=== PATIENT | male | born 1975 | race American Indian/Alaskan Native ===

== ENCOUNTER 2022-04-28 17:57 | Inpatient (IN) | payer BC ==
--- NOTE | 2022-04-28 18:36 | Emergency Department Report ---
ED Neuro Deficit HPI - General Chief Complaint: Neuro Symptoms/Deficit Stated Complaint: POSS CVA Time Seen by Provider: 04/28/22 18:32 Source: patient, EMS Mode of arrival: Stretcher Limitations: No Limitations - History of Present Illness Initial Comments: Patient is a 46-year-old male presenting to ED from clinic for evaluation of right-sided facial droop (yesterday) and slurred speech (several days ago) that he states began a few days ago after starting Plavix which he was prescribed after diagnosis of TIA roughly a week ago. He denies any other symptoms. - Related Data Allergies/Adverse Reactions: Allergies Allergy/AdvReac Type Severity Reaction Status Date / Time No Known Allergies Allergy Verified 04/28/22 18:18 ED Review of Systems ROS: Stated complaint: POSS CVA Other details as noted in HPI Constitutional: denies: chills, fever Respiratory: denies: cough, shortness of breath, wheezing Cardiovascular: denies: chest pain, palpitations Gastrointestinal: denies: abdominal pain, nausea, diarrhea Musculoskeletal: denies: back pain, joint swelling, arthralgia Skin: denies: rash, lesions Neurological: other (Right facial droop, slurred speech) ED Neuro Physical Exam - General Limitations: No Limitations General appearance: alert, in no apparent distress Suspected Stroke: Yes - Head Head exam: Present: atraumatic, normocephalic - Respiratory Respiratory exam: Present: normal lung sounds bilaterally. Absent: respiratory distress - Cardiovascular Cardiovascular Exam: Present: regular rate, normal rhythm, normal heart sounds - GI/Abdominal GI/Abdominal exam: Present: soft. Absent: distended, tenderness - Rectal Rectal exam: Present: deferred - Neurological Exam Neurological exam: Present: alert, oriented X3, other (Mild right-sided facial droop) - NIHSS Assessment Interval: 24 hours post onset of symptoms +-20 minutes 1a. Level of Consciousness: alert/keenly responsive 1b. LOC Questions: answers both correctly 1c. LOC Commands: performs tasks correctly 2. Best Gaze: normal 3. Visual: no visual loss 4. Facial Palsy: minor paralysis 5b. Motor Arm Right: no drift 5a. Motor Arm Left: no drift 6a. Motor Leg Left: no drift 6b. Motor Leg Right: no drift 7. Limb Ataxia: absent 8. Sensory: normal 9. Best Language: no aphasia 10. Dysarthria: normal 11. Extinction/Inattention: no abnormality Total Score: 1 Stroke Severity: Minor Stroke - Psychiatric Psychiatric exam: Present: normal affect, normal mood - Skin Skin exam: Present: warm, dry, intact, normal color ED Course Vital Signs 04/28/22 18:14 Pulse Rate 76 Blood Pressure 110/110 [Left] O2 Sat by Pulse 98 Oximetry - Lab Data Result diagrams: 04/28/22 19:15 04/28/22 19:15 Lab Results 04/28/22 04/28/22 04/28/22 Range/Units 19:15 19:15 19:15 WBC 8.4 (4.5-11.0) K/mm3 RBC 5.25 H (3.65-5.03) M/mm3 Hgb 14.8 (11.8-15.2) gm/dl Hct 44.4 (35.5-45.6) % MCV 85 (84-94) fl MCH 28 (28-32) pg MCHC 33 (32-34) % RDW 15.0 (13.2-15.2) % Plt Count 331 (140-440) K/mm3 Lymph % (Auto) 25.8 (13.4-35.0) % [place] % (Auto) 6.4 (0.0-7.3) % Eos % (Auto) 1.0 (0.0-4.3) % Baso % (Auto) 0.9 (0.0-1.8) % Lymph # (Auto) 2.2 (1.2-5.4) K/mm3 [place] # (Auto) 0.5 (0.0-0.8) K/mm3 Eos # (Auto) 0.1 (0.0-0.4) K/mm3 Baso # (Auto) 0.1 (0.0-0.1) K/mm3 Seg Neutrophils % 65.9 (40.0-70.0) % Seg Neutrophils # 5.5 (1.8-7.7) K/mm3 PT 13.3 (12.2-14.9) Sec. INR 0.92 (0.87-1.13) APTT 33.2 (24.2-36.6) Sec. Thrombin Time 16.7 (15.1-19.6) Sec. Sodium 139 (137-145) mmol/L Potassium 4.7 (3.6-5.0) mmol/L Chloride 102.5 (98-107) mmol/L Carbon Dioxide 26 (22-30) mmol/L Anion Gap 15 mmol/L BUN 28 H (9-20) mg/dL Creatinine 2.0 H (0.8-1.3) mg/dL Estimated GFR 36 ml/min BUN/Creatinine Ratio 14 % Glucose 192 H (75-100) mg/dL Calcium 9.4 (8.4-10.2) mg/dL Total Bilirubin 0.30 (0.1-1.2) mg/dL AST 21 (5-40) units/L ALT 22 (7-56) units/L Alkaline Phosphatase 81 (35-129) units/L Total Creatine Kinase 275 H (55-170) units/L CK-MB (CK-2) 4.1 H (0.0-4.0) ng/mL CK-MB (CK-2) Rel Index 1.4 (0-4) Troponin T < 0.010 (0.00-0.029) ng/mL Total Protein 6.9 (6.3-8.2) g/dL Albumin 4.5 (3.9-5) g/dL Albumin/Globulin Ratio 1.9 % Blood Type 04/28/22 Range/Units 19:30 WBC (4.5-11.0) K/mm3 RBC (3.65-5.03) M/mm3 Hgb (11.8-15.2) gm/dl Hct (35.5-45.6) % MCV (84-94) fl MCH (28-32) pg MCHC (32-34) % RDW (13.2-15.2) % Plt Count (140-440) K/mm3 Lymph % (Auto) (13.4-35.0) % [place] % (Auto) (0.0-7.3) % Eos % (Auto) (0.0-4.3) % Baso % (Auto) (0.0-1.8) % Lymph # (Auto) (1.2-5.4) K/mm3 [place] # (Auto) (0.0-0.8) K/mm3 Eos # (Auto) (0.0-0.4) K/mm3 Baso # (Auto) (0.0-0.1) K/mm3 Seg Neutrophils % (40.0-70.0) % Seg Neutrophils # (1.8-7.7) K/mm3 PT (12.2-14.9) Sec. INR (0.87-1.13) APTT (24.2-36.6) Sec. Thrombin Time (15.1-19.6) Sec. Sodium (137-145) mmol/L Potassium (3.6-5.0) mmol/L Chloride (98-107) mmol/L Carbon Dioxide (22-30) mmol/L Anion Gap mmol/L BUN (9-20) mg/dL Creatinine (0.8-1.3) mg/dL Estimated GFR ml/min BUN/Creatinine Ratio % Glucose (75-100) mg/dL Calcium (8.4-10.2) mg/dL Total Bilirubin (0.1-1.2) mg/dL AST (5-40) units/L ALT (7-56) units/L Alkaline Phosphatase (35-129) units/L Total Creatine Kinase (55-170) units/L CK-MB (CK-2) (0.0-4.0) ng/mL CK-MB (CK-2) Rel Index (0-4) Troponin T (0.00-0.029) ng/mL Total Protein (6.3-8.2) g/dL Albumin (3.9-5) g/dL Albumin/Globulin Ratio % Blood Type A POSITIVE - Medical Decision Making Code stroke paged. CT head performed. Radiologist called back with report of atypical CT findings concerning for possible MS. Recommended MRI with and without contrast for further evaluation. Mild MARY on chemistry. Will admit to hospitalist for further work-up including MRI. Critical care attestation.: If time is entered above; I have spent that time in minutes in the direct care of this critically ill patient, excluding procedure time. ED Disposition Clinical Impression: Symptoms of cerebrovascular accident (CVA) Disposition: ADMITTED INPATIENT Is pt being admited?: Yes Condition: Stable
--- NOTE | 2022-04-28 18:39 | Consultation ---
History of Present Illness Consult date: 04/28/22 History of present illness: Reader Teleneurology Consult Note # Demographics Consult Type: Acute Stroke Level 2 (4.5-24 hrs) Patient Location: Emergency Room First Name: Shantanu Last Name: Date of : 1975 Age: 46 Gender: Male Facility: [facility] Time of Initial Page (Eastern Time): 04/28/2022, 18:26 Time of Return Call (Eastern Time): 04/28/2022, 18:27 # HPI Chief Complaint: weakness (focal) History: Per ER staff, patient with TIA two weeks ago. Left facial droop started yesterday. Last Known Normal: I have collected independent history specific to time last normal or last known well. We have collaborated with the provider and at this time, we have the most current timeline with the information that is available. 04/27/22 Duration: constant days # Scores Time of exam and NIHSS ( Time): 04/28/2022, 18:32 Level of Consciousness 1a: [0] = Alert; keenly responsive LOC Questions 1b: [0] = Answers both questions correctly LOC Commands 1c: [0] = Performs both tasks correctly Best Gaze 2: [0] = Normal Visual 3: [0] = No visual loss Facial Palsy 4: [1] = Minor paralysis Motor Arm Left 5a: [0] = No drift Motor Arm Right 5b: [0] = No drift Motor Leg Left 6a: [0] = No drift Motor Leg Right 6b: [0] = No drift Limb Ataxia 7: [0] = Absent Sensory 8: [0] = Normal Best Language 9: [0] = No aphasia Dysarthria 10: [0] = Normal Extinction and Inattention 11: [0] = No abnormality NIHSS Total: 1 Modified Mario Scale (mRS) pre-stroke: [0] = No Symptoms Modified Mario Scale total: 0 VAN Screening: Negative # Exam SBP: 180 DBP: 110 Mental Status: awake alert and oriented x 3 follows commands Cranial Nerves: left facial droop Subtle nasolabial fold flattening # ROS Pulmonary: no shortness of breath Cardiovascular: no chest pain # PMH-FH-SH Past Medical History: Diabetes hyperlipidemia hypertension Social History: non-smoker Medications: antihypertensive plavix Allergies: NKDA # Data Glucose: 219 # Assessment Impression: Ischemic Stroke (Acute) # Plan Thrombolytic/Intervention: NOT IV Thrombolysis or IA Intervention candidate Thrombolytic Exclusion (< 3 hour window): time of onset unclear Thrombolytic Exclusion: > 4.5 hours Target Blood Pressure: SBP < [address] Labs: CBC comprehensive metabolic panel ESR hemoglobin A1c lipid panel troponin TSH urine drug screen ua Imaging: (urgency: STAT): CT Head without contrast CT Angiogram Head and CT Angiogram Neck AND call back with results if abnormal Imaging: (urgency: routine): MRI Brain without contrast Diagnostic Test: echo without bubble study Therapy/Evaluation: NPO until swallow evaluation PT/OT evaluation Medication: aspirin 81 mg PLUS clopidogrel (Plavix) 75 mg for 21 days, then monotherapy therafter start statin with goal of LDL < 70 Antiplatelet therapy pending head CT DVT Prophylaxis: SCD chemical DVT prophylaxis Other: LDL < 70 If patient has any neurological deterioration please call me back immediately permissive hypertension telemetry monitoring I have discussed my recommendations with the referring provider Disposition: admit # Demographics First Name: Shantanu Last Name: Facility: [facility] Medications and Allergies Allergies Allergy/AdvReac Type Severity Reaction Status Date / Time No Known Allergies Allergy Verified 04/28/22 18:18 Physical Examination - Vital Signs Vital Signs: Vital Signs Pulse BP Pulse Ox 76 110/110 98 04/28/22 18:14 04/28/22 18:14 04/28/22 18:14
[2022-04-28 19:24] LABS: Basophils # (Auto) 0.1 K/mm3 (0.0-0.1); Basophils % (Auto) 0.9 % (0.0-1.8); Eosinophils # (Auto) 0.1 K/mm3 (0.0-0.4); Hematocrit 44.4 % (35.5-45.6); Hemoglobin 14.8 gm/dl (11.8-15.2); Lymphocytes # (Auto) 2.2 K/mm3 (1.2-5.4); Lymphocytes % (Auto) 25.8 % (13.4-35.0); Mean Corpuscular HGB Conc 33 % (32-34); Mean Corpuscular Volume 85 fl (84-94); Monocytes # (Auto) 0.5 K/mm3 (0.0-0.8); Monocytes % (Auto) 6.4 % (0.0-7.3); Platelet Count 331 K/mm3 (140-440); Red Blood Count 5.25 M/mm3 (3.65-5.03)
--- NOTE | 2022-04-28 19:30 | Cat Scan Report ---
CT head/brain wo con INDICATION: Stroke symptoms. TECHNIQUE: Routine CT head. All CT scans at this location are performed using CT dose reduction for A INEZ by means of automated exposure control. COMPARISON: None. FINDINGS: Intracranial: Hypoattenuation involving the right periventricular white matter. The lesions appear li ke they are perpendicular to the long axis of the lateral ventricles and involve the callososeptal in terface for example on image 32 of series 602. There is also prominent lesion seen on image 18 of ser ies 2 which involves the genu of the corpus callosum. Silveira-white matter differentiation is maintained . No intracranial hemorrhage. No extra axial collection. No hydrocephalus. No herniation. Sinuses: Paranasal sinuses and mastoid air cells are essentially clear. Orbits: Globes are intact. Calvarium: No acute fracture. IMPRESSION: 1. There are \white matter \abnormalities which involve the corpus callosum. This is atypical for in farction and multiple sclerosis is a consideration. Recommend MRI brain with and without contrast to further characterize. Signer Name: Javy Bowling MD Signed: 04/28/2022 7:26 PM Workstation Name: [id number]
[2022-04-28 19:36] LABS: INR 0.92 (0.87-1.13)
[2022-04-28 19:37] LABS: Partial Thromboplastin Time 33.2 Sec. (24.2-36.6); Thrombin Time 16.7 Sec. (15.1-19.6)
[2022-04-28 19:46] LABS: Creatine Kinase MB 4.1 ng/mL (0.0-4.0)
[2022-04-28 19:47] LABS: Alanine Aminotransferase 22 units/L (7-56); Albumin 4.5 g/dL (3.9-5); BUN/Creatinine Ratio 14; Blood Urea Nitrogen 28 mg/dL (9-20); Calcium 9.4 mg/dL (8.4-10.2); Hemolysis Index 47
[2022-04-28] MEDS ORDERED: MORPHINE 4 MG/1 ML INJ IV PRN (20:25)
[2022-04-28] MEDS ORDERED: ONDANSETRON 4 MG/2 ML INJ IV PRN ×2 (20:25→21:50)
[2022-04-28] MEDS ORDERED: MORPHINE 2 MG/1 ML INJ IV PRN (20:25)
[2022-04-28] MEDS ORDERED: ACETAMINOPHEN 325 MG TAB PO PRN ×2 (20:25→21:50)
[2022-04-28] MEDS ORDERED: METOCLOPRAMIDE 10 MG/2 ML INJ IV PRN (21:50)
[2022-04-28] MEDS ORDERED: SODIUM CHLORIDE 0.9% 1000 ML 1,000 ML IV SCH (22:00)
--- NOTE | 2022-04-28 23:08 | Cat Scan Report ---
CT angio head, CT angio neck INDICATION / CLINICAL INFORMATION: SHORTNESS OF BREATH 100ml of [id number] . TECHNIQUE: CT angiography of the head and neck was performed following administration of 100 cc Omnip aque 350 intravenous contrast. In addition to axial source images, coronal and sagittal thin slab MIP reconstructions were provided. Additional 3-D volumetric reconstructions of vasculature were provide d. All CT scans at this location are performed using CT dose reduction for ALARA by means of automate d exposure control. Calculation of stenosis will be made using direct NASCET criteria. COMPARISON: CT head same date. FINDINGS: VASCULAR FINDINGS: NECK: The majority of the contrast bolus lies within the cardiac circulation suboptimal opacification of arterial structures is noted throughout the head and neck. AORTA: The great vessel origins are not well-visualized secondary to significant streak artifact fro m contrast material within the adjacent left brachiocephalic vein. GREAT VESSELS: Not well-visualized. VERTEBRAL ARTERIES: Vertebral artery origins cannot be identified secondary to streak artifact. Addit ionally, significantly suboptimal opacification of the vasculature is demonstrated. Above the approxi mate C4, the bilateral V2 segments demonstrate no obvious abnormality. Below this level not well-visu alized. RIGHT CAROTID: The proximal to mid right common carotid artery not well-visualized. Bifurcation is wi merrick patent. The right ECA and ICA appear widely patent. LEFT CAROTID: The left proximal to mid common carotid artery is not well-visualized. The bifurcation appears widely patent. The left ECA and left cervical segment ICA appear widely patent. VENOUS STRUCTURES: Nonopacified. INTRACRANIAL CIRCULATION: Intracranial vasculature within the skull base is not well opacified. RIGHT ICA: The right petrous segment ICA appears fairly uniform. The distal cavernous segment demonst rates moderate intimal calcification and severe short segment stenosis near the ophthalmic artery natalya gins suggested. RIGHT SAVANAH: The right anterior cerebral artery demonstrates no evidence of aneurysm, severe stenosis, or occlusion. RIGHT MCA: The right MCA demonstrates no evidence of large vessel occlusion, aneurysm formation, or s evere stenosis. LEFT ICA: The left petrous ICA is not well-visualized. Moderate artifact is present. The left caverno us segment ICA demonstrates heavy intimal calcification and focal short segment severe stenosis is kelly ggested proximal to the ophthalmic artery origin. LEFT SAVANAH: The left SAVANAH demonstrates no evidence of aneurysm formation, occlusion, or severe stenosis. LEFT MCA: The left MCA demonstrates no evidence of large vessel occlusion, aneurysm formation, or sev ere stenosis. ANTERIOR COMMUNICATING ARTERY: No significant abnormality. POSTERIOR COMMUNICATING ARTERIES: Not identified. VERTEBRAL CONFLUENCE: The vertebral confluence demonstrates no significant abnormality. Left vertebra l artery is dominant. BASILAR ARTERY: Basilar artery demonstrates no significant abnormality. Bifurcation and bilateral P1 segments demonstrate patency without evidence of aneurysm formation, significant stenosis, or occlusi on. RIGHT MARKETING ANALYTICS ANALYST: The right MARKETING ANALYTICS ANALYST demonstrates no evidence of occlusion, aneurysm formation, or severe stenosi s. LEFT MARKETING ANALYTICS ANALYST: The left MARKETING ANALYTICS ANALYST demonstrates no evidence of occlusion, aneurysm formation, or severe stenosis. DURAL SINUSES AND CORTICAL DURAL VEINS: Not well opacified. NONVASCULAR FINDINGS: The intracranial contents, intraorbital contents, paranasal sinuses, mastoid air cells, soft tissues and musculature of the face, soft tissues and musculature of the neck, thyroid, and upper chest demon strate no significant abnormalities. IMPRESSION: 1. Significant limitation in evaluation of the intracranial vessels and proximal carotid/vertebral ar teries for reasons as detailed. Bilateral cavernous segment ICAs demonstrate moderate to severe steno sis as detailed above. Otherwise no large vessel occlusion, aneurysm, or severe stenosis is clearly d emonstrated. 2. The dural sinuses and cortical dural veins are not well-opacified and cannot be evaluated. 3. Nonvascular structures demonstrate no significant abnormality. Signer Name: Donaldo Landin II, MD Signed: 04/28/2022 11:03 PM Workstation Name: [id number]
--- NOTE | 2022-04-28 23:08 | Cat Scan Report ---
CT angio head, CT angio neck INDICATION / CLINICAL INFORMATION: SHORTNESS OF BREATH 100ml of [id number] . TECHNIQUE: CT angiography of the head and neck was performed following administration of 100 cc Omnip aque 350 intravenous contrast. In addition to axial source images, coronal and sagittal thin slab MIP reconstructions were provided. Additional 3-D volumetric reconstructions of vasculature were provide d. All CT scans at this location are performed using CT dose reduction for ALARA by means of automate d exposure control. Calculation of stenosis will be made using direct NASCET criteria. COMPARISON: CT head same date. FINDINGS: VASCULAR FINDINGS: NECK: The majority of the contrast bolus lies within the cardiac circulation suboptimal opacification of arterial structures is noted throughout the head and neck. AORTA: The great vessel origins are not well-visualized secondary to significant streak artifact fro m contrast material within the adjacent left brachiocephalic vein. GREAT VESSELS: Not well-visualized. VERTEBRAL ARTERIES: Vertebral artery origins cannot be identified secondary to streak artifact. Addit ionally, significantly suboptimal opacification of the vasculature is demonstrated. Above the approxi mate C4, the bilateral V2 segments demonstrate no obvious abnormality. Below this level not well-visu alized. RIGHT CAROTID: The proximal to mid right common carotid artery not well-visualized. Bifurcation is wi merrick patent. The right ECA and ICA appear widely patent. LEFT CAROTID: The left proximal to mid common carotid artery is not well-visualized. The bifurcation appears widely patent. The left ECA and left cervical segment ICA appear widely patent. VENOUS STRUCTURES: Nonopacified. INTRACRANIAL CIRCULATION: Intracranial vasculature within the skull base is not well opacified. RIGHT ICA: The right petrous segment ICA appears fairly uniform. The distal cavernous segment demonst rates moderate intimal calcification and severe short segment stenosis near the ophthalmic artery natalya gins suggested. RIGHT SAVANAH: The right anterior cerebral artery demonstrates no evidence of aneurysm, severe stenosis, or occlusion. RIGHT MCA: The right MCA demonstrates no evidence of large vessel occlusion, aneurysm formation, or s evere stenosis. LEFT ICA: The left petrous ICA is not well-visualized. Moderate artifact is present. The left caverno us segment ICA demonstrates heavy intimal calcification and focal short segment severe stenosis is kelly ggested proximal to the ophthalmic artery origin. LEFT SAVANAH: The left SAVANAH demonstrates no evidence of aneurysm formation, occlusion, or severe stenosis. LEFT MCA: The left MCA demonstrates no evidence of large vessel occlusion, aneurysm formation, or sev ere stenosis. ANTERIOR COMMUNICATING ARTERY: No significant abnormality. POSTERIOR COMMUNICATING ARTERIES: Not identified. VERTEBRAL CONFLUENCE: The vertebral confluence demonstrates no significant abnormality. Left vertebra l artery is dominant. BASILAR ARTERY: Basilar artery demonstrates no significant abnormality. Bifurcation and bilateral P1 segments demonstrate patency without evidence of aneurysm formation, significant stenosis, or occlusi on. RIGHT BARK FITTER: The right BARK FITTER demonstrates no evidence of occlusion, aneurysm formation, or severe stenosi s. LEFT BARK FITTER: The left BARK FITTER demonstrates no evidence of occlusion, aneurysm formation, or severe stenosis. DURAL SINUSES AND CORTICAL DURAL VEINS: Not well opacified. NONVASCULAR FINDINGS: The intracranial contents, intraorbital contents, paranasal sinuses, mastoid air cells, soft tissues and musculature of the face, soft tissues and musculature of the neck, thyroid, and upper chest demon strate no significant abnormalities. IMPRESSION: 1. Significant limitation in evaluation of the intracranial vessels and proximal carotid/vertebral ar teries for reasons as detailed. Bilateral cavernous segment ICAs demonstrate moderate to severe steno sis as detailed above. Otherwise no large vessel occlusion, aneurysm, or severe stenosis is clearly d emonstrated. 2. The dural sinuses and cortical dural veins are not well-opacified and cannot be evaluated. 3. Nonvascular structures demonstrate no significant abnormality. Signer Name: Donaldo Landin II, MD Signed: 04/28/2022 11:03 PM Workstation Name: [id number]
[2022-04-29] MEDS: FAMOTIDINE 20 MG TAB PO SCH ×2 (00:19→11:22)
[2022-04-29 06:07] LABS: Basophils % (Auto) 0.7 % (0.0-1.8); Eosinophils # (Auto) 0.1 K/mm3 (0.0-0.4); Eosinophils % (Auto) 1.8 % (0.0-4.3); Hematocrit 42.1 % (35.5-45.6); Hemoglobin 13.7 gm/dl (11.8-15.2); Lymphocytes # (Auto) 2.5 K/mm3 (1.2-5.4); Lymphocytes % (Auto) 39.2 % (13.4-35.0); Mean Corpuscular HGB Conc 33 % (32-34); Mean Corpuscular Volume 85 fl (84-94); Monocytes # (Auto) 0.4 K/mm3 (0.0-0.8); Monocytes % (Auto) 7.1 % (0.0-7.3); Platelet Count 298 K/mm3 (140-440); Red Blood Count 4.95 M/mm3 (3.65-5.03); Red Cell Distribution Width 14.5 % (13.2-15.2)
[2022-04-29 06:26] LABS: Calcium 8.9 mg/dL (8.4-10.2); Chol/HDL Ratio 2.11 %
--- NOTE | 2022-04-29 06:36 | History and Physical Report ---
History of Present Illness Date of examination: 04/28/22 Date of admission: 04/28/22 20:25 Chief complaint: Right-sided weakness for 1 day History of present illness: 46-year-old male with morbid obesity and no significant past medical history comes in for right-sided facial droop and slurred speech and slight right-sided weakness for 1 day. Patient has similar symptoms couple weeks ago and was treated as a TIA. Patient has stated paperwork for TIA work-up. During my examination patient has definitely had right facial paralysis. But no significant weakness on the right upper and right lower EXTR. Past History Past Medical History: No medical history, other (Severe obesity) Past Surgical History: No surgical history Social history: lives with family, full code Family history: hypertension Medications and Allergies Allergies Allergy/AdvReac Type Severity Reaction Status Date / Time No Known Allergies Allergy Verified 04/28/22 18:18 Active Meds: Active Medications Acetaminophen (Acetaminophen 325 Mg Tab) 650 mg PO Q4H PRN PRN Reason: Pain MILD(1-3)/Fever >100.5/ANTONY Aspirin (Aspirin 325 Mg Tab) 325 mg PO QDAY [facility] Atorvastatin Calcium (Atorvastatin 40 Mg Tab) 40 mg PO QHS [facility] Last Admin: 04/29/22 00:19 Dose: 40 mg Enoxaparin Sodium (Enoxaparin 40 Mg/0.4 Ml Inj) 40 mg SUB-Q QDAY [facility] Famotidine (Famotidine 20 Mg Tab) 20 mg PO QAM [facility] Last Admin: 04/29/22 00:19 Dose: 20 mg Sodium Chloride (Nacl 0.9% 1000 Ml) 1,000 mls @ 42 mls/hr IV DIRECT [facility] Metoclopramide HCl (Metoclopramide 10 Mg/2 Ml Inj) 5 mg IV Q6H PRN PRN Reason: Nausea And Vomiting Morphine Sulfate (Morphine 2 Mg/1 Ml Inj) 2 mg IV Q4H PRN PRN Reason: Pain, Moderate (4-6) Morphine Sulfate (Morphine 4 Mg/1 Ml Inj) 4 mg IV Q4H PRN PRN Reason: Pain , Severe (7-10) Ondansetron HCl (Ondansetron 4 Mg/2 Ml Inj) 4 mg IV Q8H PRN PRN Reason: Nausea And Vomiting Sodium Chloride (Sodium Chloride 0.9% 10 Ml Flush Syringe) 10 ml IV BID [facility] Last Admin: 04/29/22 00:19 Dose: 10 ml Sodium Chloride (Sodium Chloride 0.9% 10 Ml Flush Syringe) 10 ml IV PRN PRN PRN Reason: LINE FLUSH Review of Systems All systems: negative Neurological: transient paralysis (Right upper and right lower extremity along with right facial paralysis.), weakness Exam - Constitutional Vitals: Temp Pulse Resp BP Pulse Ox 98.5 F 76 18 140/77 98 04/29/22 03:46 04/29/22 04:55 04/29/22 03:46 04/29/22 03:46 04/29/22 03:46 General appearance: Present: no acute distress, well-nourished - EENT Eyes: Present: PERRL ENT: hearing intact, clear oral mucosa - Neck Neck: Present: supple, normal ROM - Respiratory Respiratory effort: normal Respiratory: bilateral: CTA - Cardiovascular Heart rate: 78 Rhythm: regular Heart Sounds: Present: S1 & S2. Absent: rub, click - Extremities Extremities: no ischemia, pulses intact, pulses symmetrical, No edema Peripheral Pulses: within normal limits - Abdominal General gastrointestinal: Present: soft, non-tender, non-distended, normal bowel sounds Male genitourinary: Present: normal - Integumentary Integumentary: Present: clear, warm, dry - Musculoskeletal Musculoskeletal: gait normal, strength equal bilaterally - Psychiatric Psychiatric: appropriate mood/affect, intact judgment & insight - Neurologic Neurologic: CNII-XII intact, focal deficits (Right facial palsy), moves all extremities (Strength is normal in all 4 extremities) HEART Score - HEART Score History: Slightly suspicious Age: < 45 Risk factors: 1-2 risk factors Troponin: Troponin T < 0.010 ng/mL (0.00-0.029) 04/28/22 19:15 Troponin: < normal limit - Critical Actions Critical Actions: 0-3 pts:0.9-1.7%risk of adverse cardiac event.Candidate for discharge Results - Labs CBC & Chem 7: 04/29/22 05:28 04/29/22 05:28 Labs: Laboratory Last Values WBC 6.3 K/mm3 (4.5-11.0) 04/29/22 05:28 RBC 4.95 M/mm3 (3.65-5.03) 04/29/22 05:28 Hgb 13.7 gm/dl (11.8-15.2) 04/29/22 05:28 Hct 42.1 % (35.5-45.6) 04/29/22 05:28 MCV 85 fl (84-94) 04/29/22 05:28 MCH 28 pg (28-32) 04/29/22 05: MCHC 33 % (32-34) 04/29/22 05:28 RDW 14.5 % (13.2-15.2) 04/29/22 05:28 Plt Count 298 K/mm3 (140-440) 04/29/22 05:28 Lymph % (Auto) 39.2 % (13.4-35.0) H 04/29/22 05:28 Stanley % (Auto) 7.1 % (0.0-7.3) 04/29/22 05:28 Eos % (Auto) 1.8 % (0.0-4.3) 04/29/22 05:28 Baso % (Auto) 0.7 % (0.0-1.8) 04/29/22 05:28 Lymph # (Auto) 2.5 K/mm3 (1.2-5.4) 04/29/22 05:28 Stanley # (Auto) 0.4 K/mm3 (0.0-0.8) 04/29/22 05:28 Eos # (Auto) 0.1 K/mm3 (0.0-0.4) 04/29/22 05:28 Baso # (Auto) 0.0 K/mm3 (0.0-0.1) 04/29/22 05:28 Seg Neutrophils % 51.2 % (40.0-70.0) 04/29/22 05:28 Seg Neutrophils # 3.2 K/mm3 (1.8-7.7) 04/29/22 05:28 PT 13.3 Sec. (12.2-14.9) 04/28/22 19:15 INR 0.92 (0.87-1.13) 04/28/22 19:15 APTT 33.2 Sec. (24.2-36.6) 04/28/22 19:15 Thrombin Time 16.7 Sec. (15.1-19.6) 04/28/22 19:15 Sodium 139 mmol/L (137-145) 04/29/22 05:28 Potassium 4.3 mmol/L (3.6-5.0) 04/29/22 05:28 Chloride 106.3 mmol/L (98-107) 04/29/22 05:28 Carbon Dioxide 22 mmol/L (22-30) 04/29/22 05:28 Anion Gap 15 mmol/L 04/29/22 05:28 BUN 25 mg/dL (9-20) H 04/29/22 05:28 Creatinine 1.7 mg/dL (0.8-1.3) H 04/29/22 05:28 Estimated GFR 53 ml/min 04/29/22 05:28 BUN/Creatinine Ratio 15 % 04/29/22 05:28 Glucose 119 mg/dL (75-100) H 04/29/22 05:28 POC Glucose 219 mg/dL (70-105) H 04/28/22 18:33 Calcium 8.9 mg/dL (8.4-10.2) 04/29/22 05:28 Total Bilirubin 0.40 mg/dL (0.1-1.2) 04/29/22 05:28 AST 16 units/L (5-40) 04/29/22 05:28 ALT 20 units/L (7-56) 04/29/22 05:28 Alkaline Phosphatase 73 units/L (35-129) 04/29/22 05:28 Total Creatine Kinase 275 units/L (55-170) H 04/28/22 19:15 CK-MB (CK-2) 4.1 ng/mL (0.0-4.0) H 04/28/22 19:15 CK-MB (CK-2) Rel Index 1.4 (0-4) 04/28/22 19:15 Troponin T < 0.010 ng/mL (0.00-0.029) 04/28/22 19:15 Total Protein 6.3 g/dL (6.3-8.2) 04/29/22 05:28 Albumin 4.0 g/dL (3.9-5) 04/29/22 05:28 Albumin/Globulin Ratio 1.7 % 04/29/22 05:28 Triglycerides 51 mg/dL (2-149) 04/29/22 05:28 Cholesterol 129 mg/dL (50-199) 04/29/22 05:28 LDL Cholesterol Direct 58 mg/dL (50-130) 04/29/22 05:28 HDL Cholesterol 61 mg/dL (40-59) H 04/29/22 05:28 Cholesterol/HDL Ratio 2.11 % 04/29/22 05:28 Blood Type A POSITIVE 04/28/22 19:30 Antibody Screen Negative 04/28/22 19:30 Short CBC 04/28/22 04/29/22 Range/Units 19:15 05:28 WBC 8.4 6.3 (4.5-11.0) K/mm3 Hgb 14.8 13.7 (11.8-15.2) gm/dl Hct 44.4 42.1 (35.5-45.6) % Plt Count 331 298 (140-440) K/mm3 BMP 04/28/22 04/29/22 19:15 05:28 Sodium 139 139 Potassium 4.7 4.3 Chloride 102.5 106.3 Carbon Dioxide 26 22 BUN 28 H 25 H Creatinine 2.0 H 1.7 H Glucose 192 H 119 H Calcium 9.4 8.9 Cardiac Enzymes 04/28/22 Range/Units 19:15 Total Creatine Kinase 275 H (55-170) units/L CK-MB (CK-2) 4.1 H (0.0-4.0) ng/mL Troponin T < 0.010 (0.00-0.029) ng/mL Liver Function 04/28/22 04/29/22 Range/Units 19:15 05:28 Total Bilirubin 0.30 0.40 (0.1-1.2) mg/dL AST 21 16 (5-40) units/L ALT 22 20 (7-56) units/L Alkaline Phosphatase 81 73 (35-129) units/L Albumin 4.5 4.0 (3.9-5) g/dL - Imaging and Cardiology Imaging and Cardiology: Head CT There are white matter abnormalities which involve the corpus callosum which is atypical for infarction and multiple sclerosis Consult with recommended MRI brain with and without contrast to further characterize. Head and neck CTA Neck pain significant limitation for evaluation of intracranial results and proximal carotid/vertebral arteries for reasons as detailed. No acute abnormalities. Camara/IV: Voiding Method Toilet Assessment and Plan Advance Directives: Yes (Full code) VTE prophylaxis?: Chemical Plan of care discussed with patient/family: Yes - Patient Problems (1) TIA (transient ischemic attack) Current Visit: Yes Status: Acute Plan to address problem: TIA work-up again Will get MRI because of the frequent admissions to ER Neurology consult requested Echocardiogram requested. (2) Facial paralysis on right side Current Visit: Yes Status: Acute Plan to address problem: More consistent with Thomas's palsy. Not in agreement with acute CVA Possible TIA His strength is very normal movement in all 4 EXTR (3) Morbid obesity with BMI of 40.0-44.9, adult Current Visit: Yes Status: Chronic Plan to address problem: Patient counseled about his weight and to follow-up with bariatric surgery Dr. Gonsalves for possible intervention like gastric bypass or banding (4) MARY (acute kidney injury) Current Visit: Yes Status: Acute Plan to address problem: IV fluids for now Vasomotor nephropathy (5) T2DM (type 2 diabetes mellitus) Current Visit: Yes Status: Chronic Qualifiers: Diabetes mellitus chcf insulin use: without computer terminal operator use Plan to address problem: Newly diagnosed Patient initiated on metformin and SGLT elevated Diabetes education (6) DVT prophylaxis Current Visit: Yes Status: Acute Plan to address problem: On heparin and GI prophylax (7) Advance care planning Current Visit: Yes Status: Acute Plan to address problem: Disease education conducted, care plan discussed, diagnosis discussed and prognosis discussed. Patient acknowledged understanding. Care plan +30 minutes. Patient is full code.
[2022-04-29] MEDS ORDERED: SODIUM CHLORIDE 0.9% 1000 ML 1,000 ML IV SCH (06:45)
--- NOTE | 2022-04-29 09:43 | Magnetic Resonance Report ---
MRI BRAIN WITHOUT AND WITH CONTRAST INDICATION / CLINICAL INFORMATION: Evaluate for CVA vs multiple sclerosis, SLURRED SPEECH. TECHNIQUE: Multiplanar, multisequence MR images of the brain were obtained. COMPARISON: None available. FINDINGS: BRAIN / INTRACRANIAL CONTENTS: There is a small focus of restricted diffusion in the right frontal pe riventricular white matter. There are also some adjacent foci of T2/FLAIR hyperintensity in the periv entricular white matter bilaterally. Additionally, small foci of T2 signal hyperintensity are seen in the deep cerebral white matter. There is no abnormal enhancement. There is no hemorrhage or adverse mass effect. CRANIOCERVICAL JUNCTION: No significant abnormality. VASCULAR FLOW-VOIDS: No significant abnormality. ORBITS: No significant abnormality of visualized orbits. SINUSES / MASTOIDS: No significant abnormality of visualized sinuses and mastoid air cells. ADDITIONAL FINDINGS: None. IMPRESSION: 1. Small focus of restricted diffusion in the right frontal periventricular white matter with associa jacquelyn scattered periventricular T2 hyperintensities. Findings do raise the possibility of demyelinating process such as multiple sclerosis for which clinical evaluation is recommended. Signer Name: Johnny Cerrato MD Signed: 04/29/2022 9:38 AM Workstation Name: [email or web address]
--- NOTE | 2022-04-29 09:56 | Electrocardiograph Report ---
[facility] Test Date: 2022-04-28 Test Time: 19:43:19 Pat Name: NASREEN CLEMENTS Department: Room: A459 1 Gender: M Logistics/Shipper: MANJEET : 1975 Requested By: BOY HERNANDES Order Number: [id number] Reading MD: David Tim Measurements Intervals Branch Rate: 79 P: 54 ID: [id number] QRS: 49 QRSD: 90 T: 252 QT: 370 QTc: 426 Interpretive Statements Sinus rhythm Nonspecific T abnormalities, inferior leads No previous ECG available for comparison Electronically Signed On 04-29-2022 9:56:42 EDT by David Tim
[2022-04-29] MEDS: ASPIRIN 325 MG TAB PO SCH (11:22)
--- NOTE | 2022-04-29 12:06 | Progress Note ---
Assessment and Plan Assessment and plan: #TIAruled out #Possible new diagnosis of multiple sclerosis CT head noncontrast revealing "small focus of restricted diffusion in the right frontal periventricular white matter with associated scattered periventricular T2 hyperintensities. Findings do raise the possibility of demyelinating process such as multiple sclerosis for which clinical evaluation is recommended." MRI brain with and without contrast revealing "small focus of restricted diffusion in the right frontal periventricular white matter with associated scattered periventricular T2 hyperintensities. Findings do raise the possibility of demyelinating process such as multiple sclerosis for which clinical evaluation is recommended." Pending TTE read. Patient had TTE performed at outside facility last month; however, we are unable to access the read. Hemoglobin A1c 8.7. Lipid panel: Triglycerides 51, cholesterol 129, LDL 58, HDL 61 Neurology consulted; pending recs Physical therapy consulted; pending recs #AKIimproving Likely secondary to vasomotor nephropathy Creatinine 2.0--> 1.7 (baseline unknown) Continue IV fluid resuscitation. Renally dose drugs and avoid nephrotoxic meds. #Newly diagnosed non-insulin dependent type II diabetes mellitus hyperglycemia - hemoglobin A1c: Pending - home regimen: Sitagliptin 100 mg daily - current regimen: NPH 10 units twice daily (in the setting of high-dose steroids) + metformin 1000 mg twice daily + moderate SSI - blood glucose goal 140-180 while inpatient - continue to monitor #Morbid obesity #Weight loss counseling #Exercise counseling - BMI 43.4 - Counseled patient on the importance of weight loss, incorporating exercise, and dietary changes (lean meats, fresh fruits and vegetables, and water intake). Patient expresses understanding. - Time: +15 min #Advanced care planning -Disease education conducted, care plan discussed, diagnoses discussed, prognosis discussed, and patient acknowledges understanding with care plan -Time: +30 min Disposition Plan: Continue medical management Total Time Spent with Patient (Minutes): 45 minutes History Interval history: No acute events overnight. Hospitalist Physical - Constitutional Vitals: Temp Pulse Resp BP Pulse Ox 96.5 F L 75 18 158/98 96 04/29/22 11:38 04/29/22 11:38 04/29/22 11:38 04/29/22 11:38 04/29/22 11:38 General appearance: Present: no acute distress, well-nourished, obese - EENT Eyes: Present: PERRL, EOM intact ENT: hearing intact, clear oral mucosa, dentition normal - Neck Neck: Present: supple, normal ROM - Respiratory Respiratory effort: normal Respiratory: bilateral: CTA - Cardiovascular Rhythm: regular Heart Sounds: Present: S1 & S2 - Extremities Extremities: no ischemia, pulses intact, pulses symmetrical, No edema, normal temperature, normal color Peripheral Pulses: within normal limits - Abdominal General gastrointestinal: soft, non-tender, non-distended, normal bowel sounds - Integumentary Integumentary: Present: clear, warm, dry - Psychiatric Psychiatric: appropriate mood/affect, intact judgment & insight, memory intact, cooperative - Neurologic Neurologic: CNII-XII intact, moves all extremities, other (L facial drooping) - Allied Health Allied health notes reviewed: nursing HEART Score - HEART Score Age: < 45 Risk factors: 1-2 risk factors Troponin: Troponin T < 0.010 ng/mL (0.00-0.029) 04/28/22 19:15 Troponin: < normal limit - Critical Actions Critical Actions: 0-3 pts:0.9-1.7%risk of adverse cardiac event.Candidate for discharge Results - Labs CBC & Chem 7: 04/29/22 05:28 04/29/22 05:28 Labs: Laboratory Last Values WBC 6.3 K/mm3 (4.5-11.0) 04/29/22 05:28 RBC 4.95 M/mm3 (3.65-5.03) 04/29/22 05:28 Hgb 13.7 gm/dl (11.8-15.2) 04/29/22 05:28 Hct 42.1 % (35.5-45.6) 04/29/22 05:28 MCV 85 fl (84-94) 04/29/22 05:28 MCH 28 pg (28-32) 04/29/22 05:28 MCHC 33 % (32-34) 04/29/22 05:28 RDW 14.5 % (13.2-15.2) 04/29/22 05:28 Plt Count 298 K/mm3 (140-440) 04/29/22 05:28 Lymph % (Auto) 39.2 % (13.4-35.0) H 04/29/22 05:28 Todd % (Auto) 7.1 % (0.0-7.3) 04/29/22 05:28 Eos % (Auto) 1.8 % (0.0-4.3) 04/29/22 05:28 Baso % (Auto) 0.7 % (0.0-1.8) 04/29/22 05:28 Lymph # (Auto) 2.5 K/mm3 (1.2-5.4) 04/29/22 05:28 Todd # (Auto) 0.4 K/mm3 (0.0-0.8) 04/29/22 05:28 Eos # (Auto) 0.1 K/mm3 (0.0-0.4) 04/29/22 05:28 Baso # (Auto) 0.0 K/mm3 (0.0-0.1) 04/29/22 05:28 Seg Neutrophils % 51.2 % (40.0-70.0) 04/29/22 05:28 Seg Neutrophils # 3.2 K/mm3 (1.8-7.7) 04/29/22 05:28 PT 13.3 Sec. (12.2-14.9) 04/28/22 19:15 INR 0.92 (0.87-1.13) 04/28/22 19:15 APTT 33.2 Sec. (24.2-36.6) 04/28/22 19:15 Thrombin Time 16.7 Sec. (15.1-19.6) 04/28/22 19:15 Sodium 139 mmol/L (137-145) 04/29/22 05:28 Potassium 4.3 mmol/L (3.6-5.0) 04/29/22 05:28 Chloride 106.3 mmol/L (98-107) 04/29/22 05:28 Carbon Dioxide 22 mmol/L (22-30) 04/29/22 05:28 Anion Gap 15 mmol/L 04/29/22 05:28 BUN 25 mg/dL (9-20) H 04/29/22 05:28 Creatinine 1.7 mg/dL (0.8-1.3) H 04/29/22 05:28 Estimated GFR 53 ml/min 04/29/22 05:28 BUN/Creatinine Ratio 15 % 04/29/22 05:28 Glucose 119 mg/dL (75-100) H 04/29/22 05:28 POC Glucose 255 mg/dL (70-105) H 04/29/22 11:45 Hemoglobin A1c 8.7 % (4-6) H 04/29/22 07:46 Calcium 8.9 mg/dL (8.4-10.2) 04/29/22 05:28 Total Bilirubin 0.40 mg/dL (0.1-1.2) 04/29/22 05:28 AST 16 units/L (5-40) 04/29/22 05:28 ALT 20 units/L (7-56) 04/29/22 05:28 Alkaline Phosphatase 73 units/L (35-129) 04/29/22 05:28 Total Creatine Kinase 275 units/L (55-170) H 04/28/22 19:15 CK-MB (CK-2) 4.1 ng/mL (0.0-4.0) H 04/28/22 19:15 CK-MB (CK-2) Rel Index 1.4 (0-4) 04/28/22 19:15 Troponin T < 0.010 ng/mL (0.00-0.029) 04/28/22 19:15 Total Protein 6.3 g/dL (6.3-8.2) 04/29/22 05:28 Albumin 4.0 g/dL (3.9-5) 04/29/22 05:28 Albumin/Globulin Ratio 1.7 % 04/29/22 05:28 Triglycerides 51 mg/dL (2-149) 04/29/22 05:28 Cholesterol 129 mg/dL (50-199) 04/29/22 05:28 LDL Cholesterol Direct 58 mg/dL (50-130) 04/29/22 05:28 HDL Cholesterol 61 mg/dL (40-59) H 04/29/22 05:28 Cholesterol/HDL Ratio 2.11 % 04/29/22 05:28 Blood Type A POSITIVE 04/28/22 19:30 Antibody Screen Negative 04/28/22 19:30 Camara/IV: Voiding Method Toilet Active Medications - Current Medications Current Medications: Generic Name Dose Route Start Last Admin Trade Name Freq PRN Reason Stop Dose Admin Acetaminophen 650 mg 04/28/22 20:25 Acetaminophen 325 Mg Tab PO Q4H PRN Pain MILD(1-3)/Fever >100.5/ANTONY Aspirin 325 mg 04/29/22 10:00 04/29/22 11:22 Aspirin 325 Mg Tab PO 325 mg QDAY RALPH Administration Atorvastatin Calcium 40 mg 04/28/22 22:00 04/29/22 00:19 Atorvastatin 40 Mg Tab PO 40 mg QHS RALPH Administration Enoxaparin Sodium 40 mg 04/29/22 10:00 Enoxaparin 40 Mg/0.4 Ml Inj SUB-Q QDAY RALPH Famotidine 20 mg 04/28/22 22:00 04/29/22 11:22 Famotidine 20 Mg Tab PO 20 mg QAM RALPH Administration Sodium Chloride 1,000 mls @ 100 mls/hr 04/29/22 06:45 Nacl 0.9% 1000 Ml IV DIRECT RALPH Methylprednisolone Sodium 250 mls @ 250 mls/hr 04/29/22 12:00 Succinate 1,000 mg/ Sodium IV 05/01/22 12:59 Chloride Q24H [facility] Metoclopramide HCl 5 mg 04/28/22 21:50 Metoclopramide 10 Mg/2 Ml Inj IV Q6H PRN Nausea And Vomiting Morphine Sulfate 2 mg 04/28/22 20:25 Morphine 2 Mg/1 Ml Inj IV Q4H PRN Pain, Moderate (4-6) Morphine Sulfate 4 mg 04/28/22 20:25 Morphine 4 Mg/1 Ml Inj IV Q4H PRN Pain , Severe (7-10) Ondansetron HCl 4 mg 04/28/22 20:25 Ondansetron 4 Mg/2 Ml Inj IV Q8H PRN Nausea And Vomiting Sodium Chloride 10 ml 04/28/22 22:00 04/29/22 00:19 Sodium Chloride 0.9% 10 Ml Flush Syringe IV 10 ml BID RALPH Administration Sodium Chloride 10 ml 04/28/22 20:25 Sodium Chloride 0.9% 10 Ml Flush Syringe IV PRN PRN LINE FLUSH
[2022-04-29] MEDS: ENOXAPARIN 40 MG/0.4 ML INJ SUB-Q SCH (16:32)
[2022-04-29] MEDS: methylPREDNISolone Sod Suc 1,000 MG in SODIUM CHLORIDE 0.9% 250ML 250 ML IV SCH (16:34)
[2022-04-29] MEDS ORDERED: NON-FORMULARY EACH (Hydralazine Hcl [Hydralazine Hcl] 50 MG Tablet) PO SCH (18:18)
[2022-04-29] MEDS ORDERED: NON-FORMULARY EACH (Losartan [Cozaar] 100 MG Tablet) PO SCH (18:30)
[2022-04-29] MEDS: amLODIPine 10 MG TAB PO SCH (21:10)
[2022-04-29] MEDS: hydrALAZINE 25 MG TAB PO SCH (21:10)
[2022-04-30 05:34] LABS: BUN/Creatinine Ratio 13; Blood Urea Nitrogen 18 mg/dL (9-20); Calcium 9.1 mg/dL (8.4-10.2); Hemolysis Index 9
[2022-04-30] MEDS: ASPIRIN 325 MG TAB PO SCH (09:09)
[2022-04-30] MEDS: FAMOTIDINE 20 MG TAB PO SCH (09:10)
[2022-04-30] MEDS: amLODIPine 10 MG TAB PO SCH (09:10)
[2022-04-30] MEDS: ENOXAPARIN 40 MG/0.4 ML INJ SUB-Q SCH (09:10)
[2022-04-30] MEDS: hydrALAZINE 25 MG TAB PO SCH (09:10)
--- NOTE | 2022-04-30 09:29 | Consultation ---
History of Present Illness Consult date: 04/30/22 Reason for Consult: MS / CVA Chief complaint: Right facial droop History of present illness: 46 yo ambidextrous male who was just recently worked up for a possible tia (2 weeks ago), htn, dm, hld, obesity, presents with noted worsening of the right facial droop over the last few days. He denies any other acute neurologic symptoms. Notes he is on dual antiplatelet and statin therapy. He is concerned as to why the facial droop w/ slurred speech is worse if he is taking the "right" medications. Past History Past Medical History: No medical history, other (Severe obesity, "tia" 2 weeks ago) Past Surgical History: No surgical history Social history: lives with family, full code, other Family history: hypertension Medications and Allergies Allergies Allergy/AdvReac Type Severity Reaction Status Date / Time No Known Allergies Allergy Verified 04/28/22 18:18 Home Medications Medication Instructions Recorded Confirmed Last Taken Type AtorvaSTATin [Lipitor] 40 mg PO QHS 04/29/22 04/29/22 2 Days Ago History ~04/27/22 Ezetimibe [Zetia] 10 mg PO DAILY 04/29/22 04/29/22 2 Days Ago History ~04/27/22 Hydralazine HCl 50 mg PO BID 04/29/22 04/29/22 2 Days Ago History ~04/27/22 Losartan [Cozaar] 100 mg PO QDAY 04/29/22 04/29/22 2 Days Ago History ~04/27/22 Sitagliptin Phosphate [Januvia] 100 mg PO DAILY 04/29/22 04/29/22 2 Days Ago History ~04/27/22 amLODIPine 10 mg PO DAILY 04/29/22 04/29/22 2 Days Ago History ~04/27/22 labetaloL [Labetalol 100mg TAB] 100 mg PO BID 04/29/22 04/29/22 2 Days Ago History ~04/27/22 predniSONE [Deltasone] 50 mg PO QDAY #5 tab 04/30/22 Unknown Rx Active Meds: Active Medications Acetaminophen (Acetaminophen 325 Mg Tab) 650 mg PO Q4H PRN PRN Reason: Pain MILD(1-3)/Fever >100.5/ANTONY Amlodipine Besylate (Amlodipine 10 Mg Tab) 10 mg PO DAILY [facility] Last Admin: 04/29/22 21:10 Dose: 10 mg Aspirin (Aspirin 325 Mg Tab) 325 mg PO QDAY [facility] Last Admin: 04/29/22 11:22 Dose: 325 mg Atorvastatin Calcium (Atorvastatin 40 Mg Tab) 40 mg PO QHS [facility] Last Admin: 04/29/22 21:10 Dose: 40 mg Ezetimibe (Ezetimibe 10 Mg Tab) 10 mg PO DAILY [facility] Enoxaparin Sodium (Enoxaparin 40 Mg/0.4 Ml Inj) 40 mg SUB-Q QDAY [facility] Last Admin: 04/29/22 16:32 Dose: 40 mg Famotidine (Famotidine 20 Mg Tab) 20 mg PO QAM [facility] Last Admin: 04/29/22 11:22 Dose: 20 mg Hydralazine HCl (Hydralazine 25 Mg Tab) 50 mg PO BID [facility] Last Admin: 04/29/22 21:10 Dose: 50 mg Sodium Chloride (Nacl 0.9% 1000 Ml) 1,000 mls @ 100 mls/hr IV DIRECT [facility] Methylprednisolone Sodium Succinate 1,000 mg/ Sodium Chloride 250 mls @ 250 mls/hr IV Q24H [facility] Stop: 05/01/22 13:59 Last Admin: 04/29/22 16:34 Dose: 250 mls/hr Labetalol HCl (Labetalol 100 Mg Tab) 100 mg PO BID [facility] Last Admin: 04/29/22 21:10 Dose: 100 mg Losartan Potassium (Losartan 50 Mg Tab) 100 mg PO QDAY [facility] Metoclopramide HCl (Metoclopramide 10 Mg/2 Ml Inj) 5 mg IV Q6H PRN PRN Reason: Nausea And Vomiting Morphine Sulfate (Morphine 2 Mg/1 Ml Inj) 2 mg IV Q4H PRN PRN Reason: Pain, Moderate (4-6) Morphine Sulfate (Morphine 4 Mg/1 Ml Inj) 4 mg IV Q4H PRN PRN Reason: Pain , Severe (7-10) Ondansetron HCl (Ondansetron 4 Mg/2 Ml Inj) 4 mg IV Q8H PRN PRN Reason: Nausea And Vomiting Sodium Chloride (Sodium Chloride 0.9% 10 Ml Flush Syringe) 10 ml IV BID [facility] Last Admin: 04/29/22 21:11 Dose: 10 ml Sodium Chloride (Sodium Chloride 0.9% 10 Ml Flush Syringe) 10 ml IV PRN PRN PRN Reason: LINE FLUSH Review of Systems All systems: negative Physical Examination - Vital Signs Vital Signs: Vital Signs Pulse BP Pulse Ox 76 110/110 98 04/28/22 18:14 04/28/22 18:14 04/28/22 18:14 - Physical Exam Narrative exam: Gen: nad, well-nourished; Head: normocephalic; Eyes: no gaze deviation; no ptosis; ENT: normal vocalization; CVS: warm and well-perfused; Pulm: no respiratory distress; GI: appears non-distended; Ext: no cyanosis appreciated at distal extremities; Skin: no acute rash at distal extremities; Heme: no pathologic ecchymosis appreciated at distal extremities; Neuro: alert, oriented to name, age, month, year, surroundings, slight dysarthria, no aphasia, CN 2 - PERRL, visual cartwright grossly intact, CN 3, 4, 6 - EOMI, CN 5 - facial sensation symmetric to light touch, CN 7 - facial movement decreased on the right and involves the forehead, CN 8 - hearing grossly intact, CN 9, 10 - uvula midline, CN 11 symmetric shoulder movement, CN 12 - tongue midline; Motor - at least 4+/5 at all exts; Sensory - light touch symmetric, Cerebellar - fnf /hts intact, Gait - deferred secondary to fall risk; NIHSS (1a.) Level of Consciousness:0 (1b.) LOC Questions:0 (1c.) LOC Commands:0 (2.) Best Gaze:0 (3.) Visual:0 (4.) Facial Palsy:2 (5a.) Motor Arm, Left:0 (5b.) Motor Arm, Right:0 (6a.) Motor Leg, Left:0 (6b.) Motor Leg, Right:0 (7.) Limb Ataxia:0 (8.) Sensory:0 (9.) Best Language:0 (10.) Dysarthria: 1 (11.) Extinction and Inattention:0 NIHSS Total Score: 3 Results - Laboratory Findings CBC and BMP: 04/29/22 05:28 04/30/22 04:44 Abnormal Lab Findings: Abnormal Labs 04/28/22 04/28/22 04/28/22 18:33 19:15 19:15 RBC 5.25 H Lymph % (Auto) Sodium BUN 28 H Creatinine 2.0 H Glucose 192 H POC Glucose 219 H Hemoglobin A1c Total Creatine Kinase 275 H CK-MB (CK-2) 4.1 H HDL Cholesterol 04/29/22 04/29/22 04/29/22 05:28 05:28 07:46 RBC Lymph % (Auto) 39.2 H Sodium BUN 25 H Creatinine 1.7 H Glucose 119 H POC Glucose Hemoglobin A1c 8.7 H Total Creatine Kinase CK-MB (CK-2) HDL Cholesterol 61 H 04/29/22 04/29/22 04/29/22 08:07 11:45 16:21 RBC Lymph % (Auto) Sodium BUN Creatinine Glucose POC Glucose 106 H 255 H 156 H Hemoglobin A1c Total Creatine Kinase CK-MB (CK-2) HDL Cholesterol 04/29/22 04/30/22 21:28 04:44 RBC Lymph % (Auto) Sodium 136 L BUN Creatinine 1.4 H Glucose 148 H POC Glucose 140 H Hemoglobin A1c Total Creatine Kinase CK-MB (CK-2) HDL Cholesterol Assessment and Plan 46 yo ambidextrous male who was just recently worked up for a possible tia (2 weeks ago), htn, dm, hld, obesity, presents with noted worsening of the right facial droop over the last few days. MRI Brain noteful for right [place] acute/subacute infarction; radiologist raises concern for possible underlying demyelination. 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 2. Acute/Subacute Ischemic Stroke - patient notes full workup done at outside hospital and is currently compliant with dual antiplatelet therapy and statin therapy (goal ldl of 70). 3. Demyelination - mri images reviewed; unclear if demyelination vs white matter disease due to underlying metabolic syndrome; mri c-spine to note for any further evidence; outpatient f/u with neurology in 4 weeks to r/o underlying de myelinating disease (or mimics including sarcoidosis, etc). 4. Patient is in agreement with the plan. Neurology will signoff. Asad Graham MD Neurology [id number]
[2022-04-30] MEDS ORDERED: LOSARTAN 50 MG TAB PO SCH (10:00)
[2022-04-30] MEDS ORDERED: EZETIMIBE 10 MG TAB PO SCH (10:00)
--- NOTE | 2022-04-30 10:35 | Magnetic Resonance Report ---
MR cervical spine wo/w con INDICATION: demyelination COMPARISON: None. TECHNIQUE: Multiplanar, multisequence MRI of the cervical spine was obtained.. FINDINGS: Normal size and signal of the cervical cord. Cervicomedullary junction is normal. The cer ebellar tonsils are in normal position. The alignment is normal. The marrow signal is normal. Puneet walker soft tissues are unremarkable. Spondylosis: Small left central protrusion C4-C5 flattens the ventral cord. No significant spinal can al foraminal stenosis. Small right central protrusion at C5-C6 and C6-C7 with minimal cord flattening . Overall, there are mild spondylotic changes but no significant spinal canal or foraminal stenosis. IMPRESSION: No abnormal cord signal in the cervical spine. No imaging evidence of demyelination. CERVICAL GRADING DEFINITIONS FOR THE PURPOSES OF THIS REPORT: Cervical canal stenosis: No stenosis: No significant attenuation of the CSF spaces Mild stenosis: Attenuation or effacement of the ventral CSF Moderate stenosis: Effacement of both the ventral and dorsal CSF, cord flattening, but so me CSF remaining Severe stenosis: Effacement of all CSF, cord compression Cervical neural foraminal stenosis (Candy et al. [place] J Radiol. 2015 Jul-Aug;16(6):1294-302): No stenosis: No attenuation of the fat in the foramen Mild stenosis: Narrowest point of the foramen is larger than the extraforaminal nerve Moderate stenosis: Narrowest point of the foramen remains greater than 50% of the caliber of the extraforaminal nerve Severe stenosis: Narrowest point of the foramen is less than 50% of the caliber of th e extraforaminal nerve Signer Name: Javy Bowling MD Signed: 04/30/2022 10:31 AM Workstation Name: [id number]
[2022-04-30 11:36] VITALS: BP 172/89
--- NOTE | 2022-04-30 11:52 | Discharge Summary ---
Providers - Providers Date of Admission: 04/28/22 20:25 Date of discharge: 04/30/22 Attending physician: ANTONIA MAGAÑA MD 04/28/22 21:50 Consult to Physician [CONS] Routine Comment: Consulting Provider: ALAYNA PIERSON Physician Instructions: Reason For Exam: TIA vs multiple sclerosis 04/28/22 21:58 Occupational Therapy Evaluate and Treat [CONS] Routine Comment: Reason For Exam: Neuro deficits Physical Therapy Evaluation and Treat [CONS] Routine Comment: Reason For Exam: Neuro deficits Primary care physician: TELEPHONE SERVICE REPRESENTATIVE Hospitalization Reason for admission: TIA versus stroke work-upruled out, MARY 2/2 vasomotor nephropathy Condition: Stable Pertinent studies: Reviewed. Procedures: None. Hospital course: The patient is a 46-year-old male past medical history of hypertension, insulin- dependent type 2 diabetes mellitus, morbid obesity, hyperlipidemia, and GERD who presented to the ED with complaints of right-sided facial droop and slurred speech that had began over the previous days. The patient had previously been diagnosed with a TIA approximately 1 week prior, he was initiated on Plavix 35 mg daily. The patient presumed that his new symptoms were secondary to his Plavix administration, and he has since discontinued them. In the ED, the patient was found to be hemodynamically stable but hypertensive. His labs were remarkable for creatinine of 2.0. Neurology was consulted in the ED, the patient was not deemed to be a candidate for tPA. The patient was admitted for CVA work-up. Patient was administered IV fluids with significant improvement in his MARY on CKD stage III. Neurology was consulted for further management. Patient underwent CT head noncontrast revealing "small focus of restricted diffusion in the right frontal periventricular white matter with associated scattered periventricular T2 hyperintensities. Findings do raise the possibility of demyelinating process such as multiple sclerosis for which clinical evaluation is recommended." MRI brain with and without contrast was ordered revealing "small focus of restricted diffusion in the right frontal periventricular white matter with associated scattered periventricular T2 hyperintensities. Findings do raise the possibility of demyelinating process such as multiple sclerosis for which clinical evaluation is recommended." TTE revealed an EF 50-55% relatively unremarkable without demonstrating PFO or ASD. Due to concerns for possible multiple sclerosis versus Thomas's palsy, the patient received stress pulse steroids. Patient underwent MRI cervical spine which was unremarkable for evidence of demyelination, ruling out multiple sclerosis. Patient will follow-up with neurology in outpatient setting. Patient is medically clear for discharge. Disposition: 01 HOME / SELF CARE / HOMELESS Final Discharge Diagnosis (Prints w/discharge instructions): Thomas's palsy, TIAruled out, new diagnosis of multiple sclerosisruled out, MARY secondary to vasomotor nephropathy, insulin-dependent type 2 diabetes mellitus with hyperglycemia, morbid obesity, hypertension Time spent for discharge: 45 min Core Measure Documentation - Palliative Care Palliative Care/ Comfort Measures: Not Applicable - Core Measures Any of the following diagnoses?: none Exam - Constitutional Vitals: Temp Pulse Resp BP Pulse Ox 98.0 F 67 18 172/89 96 04/30/22 11:28 04/30/22 11:28 04/30/22 11:28 04/30/22 11:28 04/30/22 11:28 General appearance: Present: no acute distress, well-nourished, obese, other (Facial droop of right upper and lower face) - EENT Eyes: Present: PERRL, EOM intact ENT: hearing intact, clear oral mucosa, dentition normal - Neck Neck: Present: supple, normal ROM - Respiratory Respiratory effort: normal Respiratory: bilateral: CTA - Cardiovascular Rhythm: regular Heart Sounds: Present: S1 & S2 - Extremities Extremities: no ischemia, pulses intact, pulses symmetrical, No edema, normal temperature, normal color, Full ROM Peripheral Pulses: within normal limits - Abdominal General gastrointestinal: Present: soft, non-tender, non-distended, normal bowel sounds Male genitourinary: Present: deferred - Rectal Rectal Exam: deferred - Integumentary Integumentary: Present: clear, warm, dry - Musculoskeletal Musculoskeletal: strength equal bilaterally - Psychiatric Psychiatric: appropriate mood/affect, intact judgment & insight, memory intact, cooperative - Neurologic Neurologic: CNII-XII intact, moves all extremities - Allied Health Allied health notes reviewed: nursing Plan Activity: advance as tolerated Diet: low salt, diabetic Additional Instructions: The patient is a 46-year-old male past medical history of hypertension, insulin-dependent type 2 diabetes mellitus, morbid obesity, hyperlipidemia, and GERD who presented to the ED with complaints of right-sided facial droop and slurred speech that had began over the previous days. The patient had previously been diagnosed with a TIA approximately 1 week prior, he was initiated on Plavix 35 mg daily. The patient presumed that his new symptoms were secondary to his Plavix administration, and he has since discontinued them. In the ED, the patient was found to be hemodynamically stable but hypertensive. His labs were remarkable for creatinine of 2.0. Neurology was consulted in the ED, the patient was not deemed to be a candidate for tPA. The patient was admitted for CVA work-up. Patient was administered IV fluids with significant improvement in his MARY on CKD stage III. Neurology was consulted for further management. Patient underwent CT head noncontrast revealing "small focus of restricted diffusion in the right frontal periventricular white matter with associated scattered periventricular T2 hyperintensities. Findings do raise the possibility of demyelinating process such as multiple sclerosis for which clinical evaluation is recommended." MRI brain with and without contrast was ordered revealing "small focus of restricted diffusion in the right frontal periventricular white matter with associated scattered periventricular T2 hyperintensities. Findings do raise the possibility of demyelinating process such as multiple sclerosis for which clinical evaluation is recommended." TTE revealed an EF 50-55% relatively unremarkable without demonstrating PFO or ASD. Due to concerns for possible multiple sclerosis versus Thomas's palsy, the patient received stress pulse steroids. Patient underwent MRI cervical spine which was unremarkable for evidence of demyelination, ruling out multiple sclerosis. Patient will follow-up with neurology in outpatient setting. Patient is medically clear for discharge. Care Plan Goals: Patient is medically clear for discharge. Assessment: The patient is a 46-year-old male past medical history of hypertension, insulin- dependent type 2 diabetes mellitus, morbid obesity, hyperlipidemia, and GERD who presented to the ED with complaints of right-sided facial droop and slurred speech that had began over the previous days. The patient had previously been diagnosed with a TIA approximately 1 week prior, he was initiated on Plavix 35 mg daily. The patient presumed that his new symptoms were secondary to his Plavix administration, and he has since discontinued them. In the ED, the patient was found to be hemodynamically stable but hypertensive. His labs were remarkable for creatinine of 2.0. Neurology was consulted in the ED, the patient was not deemed to be a candidate for tPA. The patient was admitted for CVA work-up. Patient was administered IV fluids with significant improvement in his MARY on CKD stage III. Neurology was consulted for further management. Patient underwent CT head noncontrast revealing "small focus of restricted diffusion in the right frontal periventricular white matter with associated scattered periventricular T2 hyperintensities. Findings do raise the possibility of demyelinating process such as multiple sclerosis for which clinical evaluation is recommended." MRI brain with and without contrast was ordered revealing "small focus of restricted diffusion in the right frontal periventricular white matter with associated scattered periventricular T2 hyperintensities. Findings do raise the possibility of demyelinating process such as multiple sclerosis for which clinical evaluation is recommended." TTE revealed an EF 50-55% relatively unremarkable without demonstrating PFO or ASD. Due to concerns for possible multiple sclerosis versus Thomas's palsy, the patient received stress pulse steroids. Patient underwent MRI cervical spine which was unremarkable for evidence of demyelination, ruling out multiple sclerosis. Patient will follow-up with neurology in outpatient setting. Patient is medically clear for discharge. Follow up with: PRIMARY CAREMD [Primary Care Provider] - 3-5 Days JODI CHÁVEZ MD [Staff Physician] - 14 Days Forms: Work/School Release Form
[2022-04-30] MEDS: methylPREDNISolone Sod Suc 1,000 MG in SODIUM CHLORIDE 0.9% 250ML 250 ML IV SCH (12:44)
== END 2022-04-30 12:45 | disposition home or self-care (01) | DRG 73 ==
LOC: ED 17:57 → 3A 20:25 → 4A 21:09
PROVIDERS: ADMIT Internal Medicine; ATTEND Student in an Organized Health Care Education/Training Program
DX: G51.0 Bell's palsy (principal); N17.0 Acute kidney failure with tubular necrosis; Z68.41 Body mass index [BMI] 40.0-44.9, adult; I10 Essential (primary) hypertension; E78.5 Hyperlipidemia, unspecified; E66.01 Morbid (severe) obesity due to excess calories; Z71.3 Dietary counseling and surveillance; E11.65 Type 2 diabetes mellitus with hyperglycemia; Z79.899 Other long term (current) drug therapy; Z82.49 Family history of ischemic heart disease and other diseases of the circulatory system
CPT/HCPCS: 36415; 70450; 70496; 70498; 70553; 72156; 80048; 80053; 80061; 82550; 82553; 82962; 83036; 84484; 85025; 85610; 85670; 85730; 86850; 86900; 86901; 93005; 93306; 99285; G0378; A9575; C8929; J1650; J2930; J7050; Q9967